=== PATIENT | female | born 1970 | race African-American/Black ===

== ENCOUNTER 2017-01-08 16:34 | Emergency (ER) | payer BC ==
[~2017-01-08] VITALS: Ht 172.7 cm; Wt 93.0 kg
[2017-01-08 16:45] VITALS: BP 164/83
--- NOTE | 2017-01-08 17:03 | PHYS DOC ---
Past Medical History Past Medical History: Hypertension Past Surgical History: No Surgical History Alcohol Use: None Drug Use: None Adult General Chief Complaint Chief Complaint: HIP PAIN HPI HPI Patient is a 46 year old female with history of hypertension who presents today with 10 out of 10 left low back pain radiating into the left hip into the left leg that began yesterday. Patient denies any trauma. Patient denies any numbness or tingling to bilateral lower extremities. Denies any loss of bowel bladder function. She states her pain is sharp and worse on ambulation as well as weightbearing. She states every 5 years she has an episode of low back pain. She states she has history of scoliosis. She states she has tried over-the- counter anti-inflammatories with no relief. Review of Systems Review of Systems Constitutional: Denies fever or chills [] GI: Denies abdominal pain, nausea, vomiting, bloody stools or diarrhea [] : Denies dysuria or hematuria [] Musculoskeletal: Left low back pain radiating into the left hip into the left lower extremity. Integument: Denies rash or skin lesions [] Neurologic: Denies headache, focal weakness or sensory changes [] All other systems were reviewed and found to be within normal limits, except as documented in this note. Allergies Allergies Allergies Coded Allergies Type Severity Reaction Last Updated Verified No Known Drug Allergies 01/08/17 No Physical Exam Physical Exam Constitutional: Well developed, well nourished, no acute distress, non-toxic appearance. [] Abdomen: Bowel sounds normal, soft, no tenderness, no masses, no pulsatile masses. [] Skin: Warm, dry, no erythema, no rash. [] Back: Diffuse paraspinal muscle tenderness to the left lumbar spine especially on the left SI joint, no midline lumbar spine tenderness, no CVA tenderness. [] Extremities: No tenderness, no cyanosis, no clubbing, ROM intact, no edema. [] Neurologic: Alert and oriented X 3, normal motor function, normal sensory function, no focal deficits noted. [] Psychologic: Affect normal, judgement normal, mood normal. [] Current Patient Data Vital Signs Vital Signs Date Time Temp Pulse Resp B/P (MAP) Pulse Ox O2 Delivery O2 Flow Rate FiO2 01/08/17 16:45 97.5 70 18 99 Room Air 97.5 EKG EKG [] Radiology/Procedures Radiology/Procedures [] Course & Med Decision Making Course & Med Decision Making Pertinent Labs and Imaging studies reviewed. (See chart for details) Patient is in the ED with low back pain and sciatica. She is already on anti- inflammatories with no relief. I added a muscle relaxer as well as Medrol Dosepak. She is also given prescription for Ultram. Encouraged her to contact her PCP and set up a follow-up appointment. Recommended heat to her lumbar spine. Provided return precautions and discharged in stable condition. She is no cauda equina syndrome symptoms. We did talk about radiology studies. There is low suspicion for an acute injury. Dragon Disclaimer Dragon Disclaimer This electronic medical record was generated, in whole or in part, using a voice recognition dictation system. Departure Departure Impression: Primary Impression: Low back pain Additional Impression: Sciatica of left side Disposition: HOME, SELF-CARE Condition: STABLE Referrals: KATTY MALCOLM (PCP) Follow-up with your doctor in the next 7 days Patient Instructions: Back Pain, Adult, Sciatica with Rehab-SportsMed Additional Instructions: You were seen for low back pain radiating into the left hip into the left lower extremity. This is consistent with sciatica. We highly recommend you apply heat to the lumbar spine. Take the prescribed medicines as ordered. Do not drive or operate machinery on the muscle relaxer or the pain medicine. Contact your primary care doctor and set up a follow-up appointment as soon as possible. Scripts Methylprednisolone (MEDROL) 4 Mg Tab.ds.pk 1 PKG PO UD, #1 PKG Prov: POLINA FAYE APRN 01/08/17 Methocarbamol (ROBAXIN) 500 Mg Tablet 1 TAB PO TID, #30 TAB Prov: ANMOLStanleyPOLINA APRN 01/08/17 Tramadol Hcl (ULTRAM) 50 Mg Tablet 1 TAB PO Q6HRS, #30 TAB Prov: POLINA FAYE APRN 01/08/17 Problem Qualifiers Primary Impression: Low back pain Chronicity: acute Back pain laterality: left Sciatica presence: with sciatica Sciatica laterality: sciatica of left side Qualified Codes: M54.42 - Lumbago with sciatica, left side POLINA FAYE RODNEY Jan 08, 2017 17:03
[2017-01-08] MEDS ORDERED: METH4TAB2 PO (17:15)
[2017-01-08] MEDS ORDERED: TRAM-48 PO (17:15)
[2017-01-08] MEDS ORDERED: METH-37 PO (17:15)
== END 2017-01-08 17:26 | disposition home or self-care (01) ==
LOC: ER 16:34
DX: M54.42 Lumbago with sciatica, left side (principal); I10 Essential (primary) hypertension
CPT/HCPCS: 99283